=== PATIENT | male | born 1990 | race Caucasian/White ===

== ENCOUNTER 2019-02-01 11:26 | Emergency (ER) | payer OTHER, SELFPAY ==
[2019-02-01 11:30] VITALS: BP 133/84; PULSE 90; RESP 18; TEMP 36.4; O2SAT 100
--- NOTE | 2019-02-01 11:41 | DI.CT_ITS ---
EXAM: CT ABDOMEN PELVIS W CLINICAL HISTORY: lower abdominal pain, frequent stools TECHNIQUE: CT examination of the abdomen and pelvis was performed with a bolus infusion of 100 cc of Omnipaque 350 and ingestion of dilute barium. COMPARISON: No exams were available for comparison FINDINGS: Images obtained through the lung bases are unremarkable. Liver, spleen, and pancreas are unremarkab le in appearance. Gallbladder and bile ducts are CT normal. Adrenals and kidneys appear normal. No urinary tract calcification or obstruction. Abdominal aorta is of normal diameter and no major vasc ular abnormality is seen. Small fat containing left inguinal hernia noted. No additional significan t hernias. No significant adenopathy in the abdomen or pelvis. Appendix is normal. There is probable wall thickening of the terminal ileum, perhaps the cecum as we ll. Remainder of the colon unremarkable in appearance. No additional significant small bowel wall a bnormality seen. IMPRESSION: Findings raising the possibility of inflammation of the terminal ileum and cecum, the differential di agnosis would include Crohn's disease. Please correlate clinically. No evidence of obstruction or a bscess.
[2019-02-01] MEDS: Normal Saline 1,000 ML 125 ML IV (11:46)
[2019-02-01 11:52] LABS: Abs Immature Grans 0.01 k/cumm (0.0-0.09); Absolute Basophil Count 0.06 k/cumm (0.0-0.2); Absolute Eosinophil Count 0.61 k/cumm (0.0-0.7); Absolute Lymphocyte Count 1.68 k/cumm (1.2-3.4); Absolute Neutrophil Count 3.72 k/cumm (1.2-6.7); Basophils % 0.9; Eosinophils % 8.9; HCT 51.1 % (40.0-50.0); Immature Grans % 0.1; Lymphocytes % 24.4; Mean Corp. HGB Concentration 33.3 g/dL (32.0-36.0); Mean Corpuscular Hemoglobin 29.8 pg (27.0-33.0); Mean Corpuscular Volume 89.6 fL (80-95); Mean Platelet Volume 10.5 fL (8.0-11.0); Monocytes % 11.6; Neutrophils % 54.1; Platelet Count 336 x1000/uL (130-400); RBC Distribution Width 13.7 % (11.8-14.1); White Blood Cell Count 6.88 k/cumm (4.4-10.8)
[2019-02-01 12:03] LABS: ALT 42 U/L (16-63); AST 18 U/L (15-37); Albumin 4.6 g/dL (3.4-5.0); Alkaline Phosphatase 94 U/L (46-116); Anion Gap 10.6 mmol/L (3-11); BUN 12 mg/dL (7-18); Bilirubin, Total 0.8 mg/dL (0.2-1.0); CO2 25.4 mmol/L (21.0-32.0); CREATININE 1.02 mg/dL (0.70-1.30); Calcium 9.5 mg/dL (8.5-10.1); Chloride 106 mmol/L (98-107); Glucose 99 mg/dL (70-100); Sodium 142 mmol/L (136-145); Total Protein 8.1 g/dL (6.4-8.2)
--- NOTE | 2019-02-01 12:12 | ED.GENADUL_ITS ---
Discharge Plan Disposition Patient Disposition: HOME Condition: Stable Discharge Details Chief Complaint: Abd Prob Clinical Impression: Bowel disease, inflammatory Primary Care Provider: None,None ED Provider: Rufino Jeffrey Home Meds and New Rx's Prescriptions: New prednisone 10 mg tablet 10 mg PO DAILY Qty: 21 RF: 0 Continued famotidine [Pepcid] 20 mg Tablet 20 mg PO DAILY RF: 0 Discharge Instructions Additional Instructions: Please take prednisone 20 mg daily for 7 days, then 10 mg daily for 7 days and then stop as prescribed. Follow-up in general surgery clinic to whom I have referred you. The office #[id number]. Return to develop a fever, vomiting, worsening abdominal discomfort, or any other acute concerns. Stand Alone Forms: Work Release Medical Decision Making 28-year-old healthy male who does admit to a great deal of increased stress due to recent divorce. Presents with 2 weeks of lower abdominal pain that is crampy, achy, somewhat intermittent and associated with increased production of stool helped 10-12 times per day. Denies black or bloody stools. Is not been on recent antibiotics. No fever and denies hematochezia. He is afebrile and well-appearing. He has mild suprapubic tenderness on exam. Differential diagnosis includes colitis, diverticulitis, enteritis. IV placed, fluids initiated, patient referred for laboratory testing and contrast-enhanced CT images. White blood cell count is 6.8, hematocrit 51, platelets 336. Sodium 142, potassium 4.0, chloride 106, bicarb 25, BUN 12, creatinine 1.0, total bili 0.8, AST 18, ALT 42 CT reveals thickened terminal ileum and cecum. Differential diagnosis would include inflammatory bowel condition such as Crohn's disease. I discussed briefly with Dr. Jasso. We will trial a small course of steroid with taper (patient unable to afford budesonide is $800, therefore we will place him on prednisone). Patient will benefit from outpatient evaluation, likely to include endoscopy. I will refer him to general surgery clinic. Inflammatory markers added to patient's blood work prior to discharge. HPI General Mode of arrival: ambulatory . Date/Time Provider Initiated Documentation: 02/01/19 11:27 . Limitations to Documentation: no limitations . Information obtained by: patient . History of Present Illness 28 year old M presents to the emergency department with the chief complaint of Lower abdominal pain with frequent stools for 2 weeks, described as moderate, Quality is described as aching, and is localized to the abdomen. Patient reports no radiation. Patient started experiencing this day(s) and it has been intermittent. No relieving factors improve symptom(s), No exacerbating factors reported . Patient notes other (Frequent stools, sometimes loose, denies black or bloody stools. No vomiting. Increased stress in his life.). Patient did receive the following treatments prior to arrival, none Related Data Home Medications Medication Instructions Recorded Confirmed famotidine [Pepcid] 20 mg PO DAILY 02/01/19 02/01/19 prednisone 10 mg PO DAILY #21 tab 02/01/19 Previous Rx's Medication Instructions Recorded prednisone 10 mg PO DAILY #21 tab 02/01/19 Allergies Allergy/AdvReac Type Severity Reaction Status Date / Time No Known Allergies Allergy Unverified 02/01/19 11:36 General Stated Complaint: Abd Prob DIANE: 3 Review of Systems Narrative: 6 systems reviewed and otherwise negative. [facility] Social History Smoking/Tobacco Use Status: Current every day Tobacco Type: cigarettes Alcohol Intake: former Substance use type: does not use Details: quit drinking 3-4 weeks ago Do you feel safe at home: Yes Do you feel safe in your relationship?: Yes Exam Narrative Exam Narrative: GEN: awake, alert, oriented 3. Pleasant, well groomed, interactive. HEAD: Normocephalic, atraumatic ENT: Mucous membranes moist, oropharynx unremarkable, External ear exam unremarkable EYES: PERRL, EOMI NECK: Full ROM, no KIM, no menigismus CHEST/RESP: Nontender, clear to auscultation bilateral, no wheeze/rhonchi/rales CARDIOVASCULAR: RRR, no murmur, rub marilou. 2+ Rad pulse bilateral ABDOMEN: Soft, tender in the suprapubic region without rebound or guarding., no mass. +Bowel sounds EXT: Full ROM, no edema, no rash Neuro: Grossly normal neurologic exam, conversant, interactive. Psych: Speech fluent, thoughts congruent, affect normal Course Vital Signs Vital signs: Vital Signs Temperature 36.4 C L 02/01/19 11:30 Pulse 90 02/01/19 11:30 Respiratory Rate 18 02/01/19 11:30 Blood Pressure 133/84 02/01/19 11:30 Pulse Oximetry 100 02/01/19 11:30 Temperature 36.4 C L 02/01/19 11:30 Temperature Source Skin 02/01/19 11:30 Pulse 90 02/01/19 11:30 Respiratory Rate 18 02/01/19 11:30 Respiratory Effort Non-Labored 02/01/19 11:34 Blood Pressure 133/84 02/01/19 11:30 Blood Pressure Position Sitting 02/01/19 11:30 Pulse Oximetry 100 02/01/19 11:30 Oxygen Delivery Method Room Air 02/01/19 11:30 Oxygen Flow Rate 0 02/01/19 11:30 Pain Level 4 02/01/19 11:30 Lab/Test Results Lab/Test Results: Laboratory Tests Range/Units 02/01/19 02/01/19 11:43 11:43 WBC (4.4-10.8) k/cumm 6.88 RBC (4.50-6.00) m/cumm 5.70 Hgb (13.5-17.5) g/dL 17.0 Hct (40.0-50.0) % 51.1 H MCV (80-95) fL 89.6 MCH (27.0-33.0) pg 29.8 MCHC (32.0-36.0) g/dL 33.3 RDW (11.8-14.1) % 13.7 Plt Count (130-400) x1000/uL 336 MPV (8.0-11.0) fL 10.5 Immature Gran % 0.1 Neutrophils % 54.1 Lymphocytes % 24.4 Monocytes % 11.6 Eosinophils % 8.9 Basophils % 0.9 Absolute Neutrophils (1.2-6.7) k/cumm 3.72 Absolute Lymphocytes (1.2-3.4) k/cumm 1.68 Absolute Monocytes (0.11-0.7) k/cumm 0.80 H Absolute Eosinophils (0.0-0.7) k/cumm 0.61 Absolute Basophils (0.0-0.2) k/cumm 0.06 Sodium (136-145) mmol/L 142 Potassium (3.5-5.1) mmol/L 4.0 Chloride (98-107) mmol/L 106 Carbon Dioxide (21.0-32.0) mmol/L 25.4 Anion Gap (3-11) mmol/L 10.6 BUN (7-18) mg/dL 12 Creatinine (0.70-1.30) mg/dL 1.02 Estimated GFR/1.73 m2 (mL/min/1.73m2) >= 60.00 Glucose (70-100) mg/dL 99 Calcium (8.5-10.1) mg/dL 9.5 Total Bilirubin (0.2-1.0) mg/dL 0.8 AST (15-37) U/L 18 ALT (16-63) U/L 42 Alkaline Phosphatase (46-116) U/L 94 Total Protein (6.4-8.2) g/dL 8.1 Albumin (3.4-5.0) g/dL 4.6
[2019-02-01] MEDS: Omnipaque 350 MG/ML 100 ML BTL IV (13:03)
[2019-02-01] MEDS: Breeza Beverage 473 ML BTL PO (13:04)
[2019-02-01] MEDS: Omnipaque 350 MG/ML 50 ML BTL PO (13:04)
[2019-02-01 13:45] VITALS: BP 129/76; PULSE 69; O2SAT 99
[2019-02-01 14:01] VITALS: BP 133/84; PULSE 90; RESP 18; TEMP 36.4; O2SAT 99
[2019-02-01 14:20] LABS: C-Reactive Protein 0.58 mg/dL (0.0-0.3)
[2019-02-07 23:10] LABS: Saccharomyces cerevisiae IgA <10.0 U; Saccharomyces cervisiae IgG 13.1 U
== END 2019-02-01 14:00 | disposition home or self-care (01) ==
PROVIDERS: Emergency Provider Emergency Medicine
DX: K52.9 Noninfective gastroenteritis and colitis, unspecified (principal)
CPT/HCPCS: 36415; 80053; 96360; 96361; 99285; 74177; 85025; 86140; 86255; 86671; 99284; J3490; Q9967

== ENCOUNTER 2019-03-20 06:12 | Day surgery (SDC) | payer OTHER, SELFPAY ==
[2019-03-20 06:45] VITALS: BP 108/69; PULSE 67; RESP 16; TEMP 36.5; O2SAT 99
[2019-03-20] MEDS: Lactated Ringers 1,000 ML 80 ML IV (07:13)
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
--- NOTE | 2019-03-20 07:38 | BOWEL_PTH ---
PATIENT: KILO HU LOC: [facility] U#:[id number] AGE/SX: 28/M ROOM: RE03/20/[address]: Zaira Awan MD : [id number] BED: DIS: 03/20/2019 SPEC #: [id number] RECD: 03/20/19 12:56 STATUS: VERONICA REQ #: [id number] GRZEGORZ: 03/20/19 07:[address]: Zaira Awan DEPT: Surgical Specimen RECD BY: Viridiana Dobson ENTERED: 03/20/19 13:00 SP TYPE: Bowel OTHR DR: None Tissues: 1 - BIOPSY BOWEL 2 - BIOPSY BOWEL 3 - BIOPSY BOWEL 4 - BIOPSY BOWEL 5 - BIOPSY BOWEL Procedures: GROSS AND MICRO LEVEL 4 Comments: [id number]
--- NOTE | 2019-03-20 08:10 | W.PM.DSUDISC ---
Discharge Plan Disposition Patient Disposition: HOME Condition: Good Discharge Details Reason For Visit: Colonoscopy Attending Provider: Zaira Awan Primary Care Provider: None,None Home Meds and New Rx's Prescriptions: Continued prednisone 10 mg tablet 10 mg PO DAILY Qty: 21 RF: 0 famotidine [Pepcid] 20 mg Tablet 10 mg PO DAILY RF: 0 Discontinued polyethylene glycol 3350 17 gram/dose powder 238 g PO ONCE Qty: 238 RF: 0 bisacodyl 5 mg tablet,delayed release (DR/EC) 5 mg PO ONCE Qty: 4 RF: 0 Discharge Instructions Additional Instructions: Findings: Your colonoscopy showed inflammation of the small intestine. My office will contact you with biopsy results. Follow up: A referral will be made to gastroenterology. Please call if you develop: fevers >101.5 Nausea or Vomiting Abdominal pain that is not transient DAY SURGERY UNIT POST COLONOSCOPY INSTRUCTIONS 1. Because there will be medication in your system for the next 24 hours, you may feel a little sleepy. Your coordination will be affected. Therefore: a. Do not drive or operate dangerous equipment for 24 hours. b. Do not drink alcohol beverages for 24 hours (not even beer). c. Plan to go home and rest for the day. 2. Generally there are no restrictions on your activity after a day or so has gone by, but you may feel a bit fatigued for a few days. 3 After you arrive home you may have a light meal and return to a normal diet as you can tolerate it without feeling sick to your stomach. 4. After surgery, you may feel pain or discomfort. This should be only transient, but if it persists please contact your doctor. 5. If there are any questions regarding the findings of your procedure, please feel free to contact your doctor. 6. If you are unable to contact your doctor with a problem, contact the hospital at [phone]. 7. Continue all your regular medications unless directed otherwise. I understand the above instructions and have no questions. Signature of Patient or Responsible Adult Escort Date/Time Name of Responsible Adult Escort Signature of Nurse Date/Time Activity:: Activity as Tolerated Diet:: As Tolerated Discharge Orders Discharge Orders: Discharge Order (Routine); Ordered 03/20/19 Ordered By: Zaira Awan DS: Diagnosis Discharge Diagnosis (1) Change in bowel habits: Status: Acute (2) Ileitis: Status: Acute
--- NOTE | 2019-03-20 08:37 | COLE_ITS ---
REPORT OF OPERATIVE PROCEDURE DATE OF PROCEDURE March 20, 2019 PREOPERATIVE DIAGNOSES 1. Change in bowel habits. 2. Abnormal CT scan of the abdomen. POSTOPERATIVE DIAGNOSIS Ileitis. PROCEDURES Colonoscopy with biopsy. SURGEON Zaira Awan M.D. ANESTHESIA General. INDICATIONS This is a 28-year-old man who notes increased frequency of loose stools, some abdominal pain and weight loss. He presented to the Emergency Department where a CT suggested thickening of the distal ileum and cecum. The patient has had no prior colonoscopy. No family history of inflammatory bowel disease or colon cancer. PROCEDURE DESCRIPTION The patient was placed in the left Reyes position. Propofol was titrated to sedation. Digital rectal examination revealed no abnormities. The scope was advanced to the cecum without difficulty. The ileocecal valve was intubated and the distal ileum traversed for several centimeters. He did have punctate ulcerations scattered through the ileum. This was biopsied. The colon itself appeared normal. His prep was excellent. The scope was slowly withdrawn with biopsies taken from the ascending, transverse, descending colon and rectum. No abnormalities were noted throughout with the exception of some possible mucosal congestion in the rectum. Retroflexed view showed no other abnormalities. He tolerated the procedure well and was stable to Recovery. I will contact him with biopsy results and make further plans as indicated.
[2019-03-20 08:55] VITALS: BP 122/73; PULSE 54; RESP 16; TEMP 36.5; O2SAT 99
== END 2019-03-20 09:20 | disposition home or self-care (01) ==
PROVIDERS: Visit Provider Surgery
PROC: 0DJD8ZZ Inspection of Lower Intestinal Tract, Via Natural or Artificial Opening Endoscopic (ICD-10-PCS; CPT 45378; principal; 2019-03-20 07:30)
DX: R19.4 Change in bowel habit (principal); R93.3 Abnormal findings on diagnostic imaging of other parts of digestive tract; K52.9 Noninfective gastroenteritis and colitis, unspecified
CPT/HCPCS: 45380; 88305; NC

== ENCOUNTER 2019-05-01 09:48 | Outpatient (CLI) | payer OTHER, SELFPAY ==
[2019-05-01 10:25] LABS: Abs Immature Grans 0.03 k/cumm (0.0-0.09); Absolute Basophil Count 0.03 k/cumm (0.0-0.2); Absolute Eosinophil Count 0.25 k/cumm (0.0-0.7); Absolute Lymphocyte Count 2.35 k/cumm (1.2-3.4); Absolute Monocyte Count 0.74 k/cumm (0.11-0.7); Absolute Neutrophil Count 3.94 k/cumm (1.2-6.7); Basophils % 0.4; Eosinophils % 3.4; HCT 42.4 % (40.0-50.0); HGB 13.9 g/dL (13.5-17.5); Immature Grans % 0.4 %; Mean Corp. HGB Concentration 32.8 g/dL (32.0-36.0); Mean Corpuscular Hemoglobin 28.5 pg (27.0-33.0); Mean Corpuscular Volume 87.1 fL (80-95); Mean Platelet Volume 9.8 fL (8.0-11.0); Monocytes % 10.1; Neutrophils % 53.7; Platelet Count 328 x1000/uL (130-400); RBC 4.87 m/cumm (4.50-6.00); RBC Distribution Width 13.6 % (11.8-14.1); White Blood Cell Count 7.34 k/cumm (4.4-10.8)
[2019-05-01 12:02] LABS: Anion Gap 9.5 mmol/L (3-11); C-Reactive Protein 0.36 mg/dL (0.0-0.3); CO2 26.5 mmol/L (21.0-32.0); CREATININE 0.88 mg/dL (0.70-1.30); Calcium 9.1 mg/dL (8.5-10.1); Chloride 106 mmol/L (98-107); Glucose 84 mg/dL (74-106); Potassium 4.4 mmol/L (3.5-5.1); Sodium 142 mmol/L (136-145)
[2019-05-01 12:13] LABS: BUN 16 mg/dL (7-18)
== END 2019-05-01 10:08 ==
PROVIDERS: Visit Provider Surgery
DX: K50.00 Crohn's disease of small intestine without complications (principal)
CPT/HCPCS: 36415; 80048; 85025; 86140